=== PATIENT | male | born 1955 | race Caucasian/White ===

== ENCOUNTER 2022-07-23 11:56 | Inpatient (IN) | payer OTHER ==
[~2022-07-23] VITALS: Ht 175.3 cm; Wt 86.6 kg
[2022-07-23 13:18] LABS: BASOPHILS # (AUTO) 0.1 (0.0-0.1); BASOPHILS % 0.7 % (0.0-1.0); EOSINOPHILS # (AUTO) 0.3 (0.0-0.4); EOSINOPHILS % 3.9 % (0.0-6.0); HEMATOCRIT 42.8 % (38.2-49.6); HEMOGLOBIN 14.4 g/dL (14.0-18.0); LYMPHOCYTES # (AUTO) 1.8 (1.0-3.2); LYMPHOCYTES % 22.7 % (18.0-39.1); MEAN CORPUSCULAR HEMOGLOBIN 27.6 pg (28-32); MEAN CORPUSCULAR HGB CONC 33.6 g/dL (31-35); MEAN CORPUSCULAR VOLUME 82.1 fL (81-99); MONOCYTES # (AUTO) 0.6 (0.2-0.8); MONOCYTES % 7.8 % (4.4-11.3); NEUTROPHILS # (AUTO) 5.2 (2.1-6.9); NEUTROPHILS % 64.4 % (38.7-80.0); PLATELET COUNT 198 x10e3/uL (140-360); RED BLOOD COUNT 5.21 x10e6/uL (4.3-5.7); RED CELL DISTRIBUTION WIDTH 13.6 % (11.7-14.4)
[2022-07-23 13:48] LABS: ALBUMIN 3.8 g/dL (3.5-5.0); ALBUMIN/GLOBULIN RATIO 1.3 (0.8-2.0); ANION GAP 13.2 mmol/L (8-16); CREATININE, SERUM 0.83 mg/dL (0.72-1.25); POTASSIUM 4.2 mmol/L (3.5-5.1)
[2022-07-23] MEDS ORDERED: ONDANSETRON HCL INJ 2MG/ML 2ML 2 MG/ML VIAL IV PRN (14:15)
[2022-07-23] MEDS ORDERED: SODIUM CHLORIDE FLUSH 10 ML SYR INJ PRN (14:15)
[2022-07-23 14:17] LABS: CLARITY,URINE CLEAR (CLEAR); COLOR,URINE YELLOW (YELLOW); KETONES,URINE NEGATIVE (NEGATIVE); LEUKOCYTE ESTERASE ,URINE TRACE (NEGATIVE); NITRITE,URINE NEGATIVE (NEGATIVE); PROTEIN,URINE DIPSTICK NEGATIVE (NEGATIVE)
[2022-07-23 14:18] LABS: URINE UROBILINOGEN 0.2 mg/dL (0.2 - 1)
[2022-07-23 14:50] LABS: BACTERIA,URINE FEW /HPF; RBC,URINE 0-5 /HPF (0-5); WBC,URINE (MAN) 0-5 /HPF (0-5)
[2022-07-23 19:30] VITALS: BP 132/87
[2022-07-23 20:18] VITALS: BP 132/87
[2022-07-24] VITALS (11 sets, daily range): BP systolic 110–162; BP diastolic 78–95
[2022-07-24 06:05] LABS: BASOPHILS # (AUTO) 0.1 (0.0-0.1); BASOPHILS % 0.8 % (0.0-1.0); EOSINOPHILS # (AUTO) 0.1 (0.0-0.4); EOSINOPHILS % 1.5 % (0.0-6.0); HEMATOCRIT 38.9 % (38.2-49.6); LYMPHOCYTES % 32.3 % (18.0-39.1); MEAN CORPUSCULAR HEMOGLOBIN 28.1 pg (28-32); MEAN CORPUSCULAR HGB CONC 33.4 g/dL (31-35); MEAN CORPUSCULAR VOLUME 84.2 fL (81-99); MONOCYTES # (AUTO) 0.5 (0.2-0.8); MONOCYTES % 8.4 % (4.4-11.3); NEUTROPHILS # (AUTO) 3.5 (2.1-6.9); NEUTROPHILS % 56.7 % (38.7-80.0); PLATELET COUNT 189 x10e3/uL (140-360); RED BLOOD COUNT 4.62 x10e6/uL (4.3-5.7); RED CELL DISTRIBUTION WIDTH 13.8 % (11.7-14.4)
[2022-07-24 06:20] LABS: ANION GAP 12.8 mmol/L (8-16); CALCIUM 8.3 mg/dL (8.4-10.2); CREATININE, SERUM 0.73 mg/dL (0.72-1.25); POTASSIUM 3.8 mmol/L (3.5-5.1)
[2022-07-24] MEDS ORDERED: ACETAMINOPHEN 325 MG TAB PO PRN (07:45)
[2022-07-24] MEDS ORDERED: FUROSEMIDE20 MG PO (11:23)
[2022-07-24] MEDS ORDERED: ABILIFY5 MG PO (11:23)
[2022-07-24] MEDS ORDERED: OXYBUTYNIN CHLOR5 MG PO (11:23)
[2022-07-24] MEDS ORDERED: ASPIRIN EC81 MG PO (11:23)
[2022-07-24] MEDS ORDERED: FINASTERIDE5 MG PO (11:23)
[2022-07-24] MEDS ORDERED: PROPRANOLOL HCL10 MG PO (11:23)
[2022-07-24] MEDS ORDERED: LEXAPRO20 MG PO (11:23)
[2022-07-24] MEDS ORDERED: ATORVASTATIN CA20 MG PO (11:23)
[2022-07-24] MEDS ORDERED: ZOLPIDEM TARTRAT5 MG PO (11:23)
[2022-07-24] MEDS ORDERED: LOSARTAN POTASS25 MG PO (11:23)
[2022-07-24] MEDS: ALBUTEROL/IPRATROPIUM 3 ML NEB NEB PRN (19:20)
[2022-07-25 04:47] VITALS: BP 150/83
[2022-07-25] MEDS: ALBUTEROL/IPRATROPIUM 3 ML NEB NEB PRN ×2 (07:00→19:47)
[2022-07-25 08:10] VITALS: BP 148/86
[2022-07-25 08:19] VITALS: BP 148/86
[2022-07-25] MEDS ORDERED: TRELEGY ELLIPT1 EAC1 INH (09:00)
[2022-07-25] MEDS ORDERED: IPRAT-ALBUT 0.5-3 ML INH (09:00)
[2022-07-25 11:14] VITALS: BP 175/88
[2022-07-25] MEDS ORDERED: ONDANSETRON HCL 4 MG ORAL DISINTEGRATING TAB PO PRN (11:45)
[2022-07-25] MEDS ORDERED: AMLODIPINE BESYLATE 10 MG TAB PO ONE (11:45)
[2022-07-25] MEDS ORDERED: HYDRALAZINE HCL 25 MG TAB PO PRN (15:45)
[2022-07-25 18:15] VITALS: BP 178/90
[2022-07-26] MEDS ORDERED: NIFEDIPINE CR 30 MG TAB PO SCH (06:00)
== END 2022-07-25 20:51 | DRG 690 ==
LOC: ER 12:10 → ERHOLD 14:09 → MED/SURG3 19:35 → OBSVTOIN 07-25 07:57
PROVIDERS: ADMIT Internal Medicine; ATTEND Internal Medicine
PROC: 02HV33Z Insertion of Infusion Device into Superior Vena Cava, Percutaneous Approach (ICD-10-PCS; principal; 2022-07-25)
DX: N39.0 Urinary tract infection, site not specified (principal); Z16.12 Extended spectrum beta lactamase (ESBL) resistance; Z16.24 Resistance to multiple antibiotics; B96.20 Unspecified Escherichia coli [E. coli] as the cause of diseases classified elsewhere; E66.09 Other obesity due to excess calories; Z68.28 Body mass index [BMI] 28.0-28.9, adult; Z87.440 Personal history of urinary (tract) infections; B96.1 Klebsiella pneumoniae [K. pneumoniae] as the cause of diseases classified elsewhere; J44.9 Chronic obstructive pulmonary disease, unspecified; N40.1 Benign prostatic hyperplasia with lower urinary tract symptoms; R33.8 Other retention of urine; C61 Malignant neoplasm of prostate; R35.1 Nocturia; Z20.822 Contact with and (suspected) exposure to COVID-19; Z66 Do not resuscitate
CPT/HCPCS: 36415; 36569; 71045; 74176; 80048; 80053; 81001; 84152; 85025; 94799; 99284; G0378; J0692